=== PATIENT | female | born 1985 | race Caucasian/White ===

== ENCOUNTER 2019-11-10 14:18 | Emergency (ER) | payer SELFPAY ==
[2019-11-10 15:10] VITALS: BP 131/97; PULSE 100; RESP 16; TEMP 36.9; O2SAT 99
--- NOTE | 2019-11-10 15:34 | ED.URI ---
HPI - URI/Sore Throat General Chief Complaint: Upper Respiratory Infection Stated Complaint: chest pain, SOB, cough Source: patient Mode of arrival: ambulatory History of Present Illness HPI Narrative: this is a 34-year-old female with history of asthma and history of tobacco abuse recent only tested positive for COVID-19 approximately 2 weeks ago presents with mild shortness of breath with mild cough nasal congestion no audible wheezing vitals are stable with O2 sat 99%. Cough is nonproductive clear nasal discharge with no fever chills, does have an inhaler that she has been using. MD elicited complaint: nasal congestion Pertinent past history: other ( COVID positive 2 weeks ago) Onset (ago): day(s) Consistency: intermittent Severity: mild Description of mucous: watery Exacerbating factors: nothing Relieving factors: nothing Related Data Home Medications Medication Instructions Recorded Confirmed albuterol sulfate 2 puff INHALATION QID 12/13/18 11/10/19 Allergies Allergy/AdvReac Type Severity Reaction Status Date / Time No Known Allergies Allergy Verified 12/13/18 08:31 Review of Systems Review of Systems: All systems reviewed & are unremarkable except as noted in HPI and below PMFSH Past Medical History Medical History Asthma Social History Social History Gender identity (if verbalized by the patient): Female Exam Const: General: no acute distress Orientation/consciousness: patient oriented x3 HENMT: Head: normal to inspection Eyes: Conjunctivae: conjunctivae normal Pupils: Equal, round and reactive pupils present EOM: EOMs intact bilaterally Neck: Neck: normal visual inspection, no lymphadenopathy and no meningeal signs Chest: Chest palpation & inspection: normal inspection of the chest Resp: Effort & Inspection: normal respiratory effort Cardio: Rate: regular rate Rhythm: regular rhythm GI: GI Palp: Yes Soft to palpation Auscultation: normal bowel sounds : General: Yes no CVA tenderness Urinary Catheter: Urinary Catheter: patent and draining Back/Spine/Pelvis: Back: no CVA tenderness Extrem: General: normal to inspection and no pedal edema Psych: Mental Status: mental status grossly normal Course Course Emergency Course: patient resting comfortably O2 sats at 99% with clear lung sounds with no audible wheezing. Vital Signs Vital signs: Vital Signs Temperature 36.9 C 10/03/20 15:10 Pulse Rate 100 11/10/19 15:10 Respiratory Rate 16 11/10/19 15:10 Blood Pressure 131/97 H 11/10/19 15:10 Pulse Oximetry 99 11/10/19 15:10 Temperature 36.9 C 11/10/19 15:10 Pulse Rate 100 11/10/19 15:10 Respiratory Rate 16 11/10/19 15:10 Blood Pressure 131/97 H 11/10/19 15:10 Pulse Oximetry 99 11/10/19 15:10 Critical Care Time Critical Care Time Critical Care Time: No Discharge Plan Discharge Clinical Impression: Asthma Qualifiers: Asthma severity: mild Asthma persistence: intermittent Asthma complication type: uncomplicated Qualified Code(s): J45.20 - Mild intermittent asthma, uncomplicated Acute bronchitis Qualifiers: Bronchitis organism: unspecified organism Qualified Code(s): J20.9 - Acute bronchitis, unspecified Patient Disposition: Home, Self-Care Condition: Stable Instructions: Antibiotic Form, Acute Bronchitis (ED) Additional Instructions: take medicine as prescribed and follow-up with primary care physician if symptoms persist or worsen. Prescriptions: New azithromycin [Zithromax Z-Darnell] 250 mg tablet See Rx Instructions .ROUTE .COMPLEX Qty: 6 RF: 0 methylprednisolone [Medrol (Darnell)] 4 mg tablets,dose pack See Rx Instructions .ROUTE .COMPLEX Qty: 21 RF: 0 No Action albuterol sulfate 90 mcg/actuation Hfa Aerosol Inhaler 2 puff INHALATION QID RF: 0 Follow-up/Referrals: Trista Powers MD
[2019-11-10] MEDS: cefTRIAXone 1 GM VIAL IM (15:44)
[2019-11-10 15:52] VITALS: RESP 17
== END 2019-11-10 15:52 | disposition home or self-care (01) ==
PROVIDERS: Emergency Provider Emergency Medicine; PCP Internal Medicine
DX: J45.20 Mild intermittent asthma, uncomplicated (principal); J20.9 Acute bronchitis, unspecified
CPT/HCPCS: 96372; 99283; J0696

== ENCOUNTER 2021-08-28 13:04 | Outpatient (CLI) | payer OTHER, SELFPAY ==
[2021-08-28 13:59] LABS: Influenza A QL RT-PCR Negative (Negative); Influenza B QL RT-PCR Negative (Negative); SARS-CoV-2 RNA PCR Positive (Negative)
== END 2021-08-28 13:05 | disposition home or self-care (01) ==
LOC: CHSLAB 13:07
PROVIDERS: PCP Internal Medicine; Visit Provider Nurse Practitioner Family
DX: U07.1 COVID-19 (principal); J06.9 Acute upper respiratory infection, unspecified; R50.9 Fever, unspecified
CPT/HCPCS: 87502; C9803; U0003; U0005

== ENCOUNTER 2023-05-23 11:27 | Inpatient (IN) | payer OTHER, SELFPAY ==
[2023-05-23] VITALS (97 sets, daily range): BP systolic 94–129; BP diastolic 43–95; PULSE 65–102; RESP 16; TEMP 36.6–36.9; O2SAT 97–100; BMI 25.3
[2023-05-23 12:54] LABS: Basophils Percent Auto 0.4 % (0.2-1.2); Eosinophils Absolute Auto 0.1 K/mm3 (0-0.3); Hematocrit 33.8 % (37.0-47.0); Hemoglobin 11.7 g/dL (12.0-15.0); Immature Granulocyte Absolute 0.05 K/mm3 (0.00-0.031); Immature Granulocyte Percent A 0.7 % (0-0.5); Lymphocytes Absolute Auto 1.36 K/mm3 (0.9-3.2); Lymphocytes Percent Auto 18.6 % (18.3-44.2); Mean Corpuscular HGB Conc 34.6 g/dl (32-36); Mean Corpuscular Hemoglobin 31.4 pg (26-34); Mean Corpuscular Volume 90.6 fl (80-100); Mean Platelet Volume 10.3 fl (7.4-10.4); Monocytes Absolute Auto 0.5 K/mm3 (0.1-0.6); Monocytes Percent Auto 6.3 % (2.6-8.5); Neutrophils Absolute Auto 5.3 K/mm3 (1.3-6.7); Platelet Count Result 201 k/mm3 (150-375); Red Blood Count 3.73 M/mm3 (4.2-5.4); Red Cell Distribution Width 13.2 % (11.5-14.5); White Blood Count 7.3 K/mm3 (4.5-10.0)
[2023-05-23] MEDS: LACTATED RINGERS 1,000 ML 125 ML IV CONT (12:57)
--- NOTE | 2023-05-23 13:04 | LDADM ---
This patient, Eliana Collins, was admitted to Labor/Delivery/Recovery 103 on 05/23/23 at 11:27. Plans for labor, pain management and were discussed with patient. Patient/family oriented to hospital policies and general routines including ID bracelet, bed and alarms, visiting hours, pain management, procedures, bathroom and other care routines, personal items, smoking policy, room service/diet and guest tray routines, security routines, and visiting hours. Patient/Family are encouraged to report perceived risks to care and to ask questions if they do not understand what they are told or what they should do. See [facility]BIX for further documentation.
[2023-05-23] MEDS: OXYTOCIN 30 UNITS/NS 500 ML 30 UNITS/500 ML BAG IV CONT (13:23)
[2023-05-23 13:44] LABS: HIV 1/2 Ab P24 Ag Result Negative (Negative)
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
[2023-05-23 14:14] LABS: Hepatitis B Surface Antigen Negative (Negative)
[2023-05-23 14:23] LABS: Hepatitis B Surface Antigen 0.08 S/C; Rubella IgG Antibody > 110.0 IU/ML
--- NOTE | 2023-05-23 16:17 | P.PNAN_ITS ---
Anes - Initial Pre Proc Eval Date/Time: 05/23/23 16:17 Surgeon: Carissa Arceo MD Pre Op Diagnosis: Induction of Labor Patient Data Age: 37 Gender: F Height: 1.63 m Weight: 67 kg Last Vital Signs Temp 36.6 C 05/23/23 16:14 Pulse 84 05/23/23 16:15 BP 94/62 L 05/23/23 16:15 Pulse Ox 100 05/23/23 16:14 O2 Del Method Room Air 05/23/23 13:02 Allergies Allergy/AdvReac Type Severity Reaction Status Date / Time No Known Allergies Allergy Verified 05/16/23 14:37 Home Medications Medication Instructions Recorded Confirmed Type albuterol sulfate 90 mcg/actuation 2 puff inhalation QID #6.7 grams 04/06/23 05/23/23 Rx aerosol inhaler ondansetron 4 mg disintegrating 4 mg PO Q6H PRN nausea and 05/04/23 05/23/23 Rx tablet vomiting #20 tabs prenat.vits,varun,vjy-tojr-rlwyg 1 tablet PO DAILY 05/05/23 05/23/23 History buspirone 10 mg tablet 10 mg PO DAILY #30 tabs 05/11/23 05/23/23 Rx escitalopram oxalate 10 mg tablet 15 mg PO DAILY 90 days #135 tabs 05/11/23 05/23/23 Rx Laboratory Tests 05/23/23 12:31 WBC 7.3 K/mm3 (4.5-10.0) RBC 3.73 L M/mm3 (4.2-5.4) Hgb 11.7 L g/dL (12.0-15.0) Hct 33.8 L % (37.0-47.0) MCV 90.6 fl (80-100) MCH 31.4 pg (26-34) MCHC 34.6 g/dl (32-36) RDW 13.2 % (11.5-14.5) Plt Count 201 k/mm3 (150-375) MPV 10.3 fl (7.4-10.4) Immature Gran % (Auto) 0.7 H % (0-0.5) Neut % (Auto) 73.0 % (45.5-73.1) Lymph % (Auto) 18.6 % (18.3-44.2) [place] % (Auto) 6.3 % (2.6-8.5) Eos % (Auto) 1.0 % (0-4.4) Baso % (Auto) 0.4 % (0.2-1.2) Lymph # (Auto) 1.36 K/mm3 (0.9-3.2) [place] # (Auto) 0.5 K/mm3 (0.1-0.6) Eos # (Auto) 0.1 K/mm3 (0-0.3) Baso # (Auto) 0.0 K/mm3 (0.0-0.1) Abs Immat Gran (auto) 0.05 H K/mm3 (0.00-0.031) Absolute Neuts (auto) 5.3 K/mm3 (1.3-6.7) Absolute Nucleated RBC 0.000 K/mm3 (0.0-0.012) Nucleated RBC % 0.0 % (0.0-0.2) RPR Pending Hep Bs Antigen Negative (Negative) HIV 1&2 Ab/P24 Ag 4thGn Negative (Negative) Rubella IgG Antibody > 110.0 IU/ML (10 - ) Blood Type O Positive Antibody Screen Negative Patient hx anesthesia problems: none Family hx anesthesia problems: none Results Review: All pre-operative results and documents have been reviewed as part of the pre-operative evaluation. [facility] Past Medical History Medical History Asthma Mastodynia of left breast Suppression of menses Surgical History Surgical History H/O: knee surgery History of colposcopy x 2 Hx of shoulder surgery Family History Family History Grandparent Hypertension Mother Hypertension Depression Lupus Social History Social History Smoking packs per day: 0.5 Smoking cigarettes per day: 10.0 Smoking status: Current every day smoker Tobacco type: cigarettes Alcohol intake: former Substance use: former Last use: first trimester Do You Feel Safe in your Home?: Yes Lack of Transportation: YES Lack of Food: Never True Current Housing: I Do Not Have Housing Concerned About Future Housing: YES Difficulty Paying Gas/Electric Bills: YES Difficulty Paying for Meds: No Currently Unemployed: YES Education: High School Diploma/GED Difficulty w/ Childcare or Family Care: YES Living arrangements: with family Occupation/Education: occupation Gender identity (if verbalized by the patient): Female Spiritual care concerns: No Anes - Eval Final PreProcedure Day of Procedure 05/23/23 16:17 Patient weight: normal Neurological: alert and oriented ASA classification: II Emergent: no Anesthetic plan: proceed Anesthesia type and monitoring: regional epidural and standard monitoring Results Review: All pre-operative results and documents have been reviewed as part of the pre- operative evaluation. Informed Consent: The patient's anesthetic plan and its attendant risks and benefits were discussed with the patient/family/POA. Questions were solicited and answers provided to the satisfaction of the patient/family/POA.
--- NOTE | 2023-05-23 19:11 | PM.OBPRVD ---
OB - Vaginal Delivery Note Procedure Delivery date: 05/23/23 Events: Elective Induction of Labor Induction method: Per Pitocin Protocol Delivery augmentation: Rupture of Membranes Delivery monitor: External FHT and External Uterine Route of delivery: Episiotomy description: None Laceration Description: None Specimen: Yes (placenta) Quantitative Blood Loss (ml): 100 Anesthesia type: Epidural Disposition: Floor Complications: No immediate complications Baby Date of : 05/23/23 Time of : 18:58 Weeks of gestation at delivery: 39 gender: Female presentation: vertex Placenta delivery description: Expressed Cord Vessel Description: 3 Vessels, Nuchal Cord and Around Extremity score one minute: 8 score five minutes: 9 Narrative: Eliana rapidly progressed to complete dilation with strong desire to push. She pushed 1 and half times and delivered the head over intact perineum. Nuchal cord was noted but loose and delivered through. She easily delivered the infant's shoulders and body without complication. The cord was also noted to be around the lower extremity. The was immediately placed skin to skin and had spontaneous cry. Delayed cord clamping was performed. The umbilical cord was then doubly clamped and cut. A segment of the cord was collected for cord gases. The remaining cord blood was collected for typing. With Pitocin running and gentle downward traction on the cord, the placenta delivered without complications. Bimanual massage was performed and good uterine tone with minimal bleeding was noted. Sponge, lap, instrument, and needle counts were correct at the end the procedure. Mom and baby were left bonding in the birthing suite in a stable condition. [facility] Delivery Billing Delivery Delivery: Delivery Charge
[2023-05-23] MEDS: OXYTOCIN 30 UNITS/NS 500 ML 30 UNITS/500 ML BAG 125 UNITS IV CONT (19:35)
[2023-05-23] MEDS: BENZOCAINE 20% AER SPR (*SP) 56 GM CAN 1 SPRAY TOPICAL (21:04)
[2023-05-23] MEDS: WITCH HAZEL 40 PADS 1 PAD TOPICAL (21:04)
[2023-05-23 21:07] LABS: Amphetamine Screen Urine Negative (Negative); Barbiturate Screen Urine Negative (Negative); Benzodiazepines Screen Urine Negative (Negative); Cannabinoid Screen Urine Negative (Negative); Cocaine Screen Urine Negative (Negative); Methadone Screen Urine Negative (Negative); Opiate Screen Urine Negative (Negative); Phencyclidine Screen Urine Negative (Negative)
[2023-05-24 04:53] LABS: Hematocrit 30.7 % (37.0-47.0); Hemoglobin 10.1 g/dL (12.0-15.0)
--- NOTE | 2023-05-24 07:53 | PM.OBPNVD ---
OB - PN: Subj Subjective Date/time seen: 05/24/23 07:35 Narrative: PPD#1 Eliana reports doing well today. Her bleeding is cat breeder. Her pain is controlled. She is tolerating regular diet, voiding, passing gas, and ambulating without issues. She is breast/bottle feeding. OB - PN: Obj Data Labs 05/24/23 04:16 Labs: Laboratory Results - last 24 hr 05/23/23 12:31 WBC 7.3 RBC 3.73 L Hgb 11.7 L Hct 33.8 L MCV 90.6 MCH 31.4 MCHC 34.6 RDW 13.2 Plt Count 201 MPV 10.3 Immature Gran % (Auto) 0.7 H Neut % (Auto) 73.0 Lymph % (Auto) 18.6 [place] % (Auto) 6.3 Eos % (Auto) 1.0 Baso % (Auto) 0.4 Lymph # (Auto) 1.36 [place] # (Auto) 0.5 Eos # (Auto) 0.1 Baso # (Auto) 0.0 Abs Immat Gran (auto) 0.05 H Absolute Neuts (auto) 5.3 Absolute Nucleated RBC 0.000 Nucleated RBC % 0.0 Hep Bs Antigen Negative HIV 1&2 Ab/P24 Ag 4thGn Negative Rubella IgG Antibody > 110.0 Blood Type O Positive Antibody Screen Negative OB - PN A/P Assessment and Plan (1) Normal vaginal delivery of third : Code(s): O80 - Encounter for full-term uncomplicated delivery Status: Acute Plan day: 1 Plan: routine care Comments: - PO pain meds - Regular diet - Ambulation and hydration encouraged Time Spent With Patient Time: Total time spent is greater than 50% in coordination of care (as documented) at patient's floor/unit and/or counseling patient: Review of Systems Constitutional: Constitutional: Denies chills, Denies fever(s) and Denies headache(s) Eyes: Eyes: Denies change in vision ENT: Denies dizziness and Denies headache(s) Cardiovascular: Cardiovascular: Denies chest pain, Denies palpitations and Denies dyspnea Respiratory: Respiratory: Denies cough and Denies dyspnea Gastrointestinal: Gastrointestinal: Denies nausea and Denies vomiting Neurologic: Denies dizziness and Denies headache(s) Endocrine: Endocrine: Denies palpitations Exam Const: General: cooperative, comfortable and no acute distress Orientation/consciousness: patient oriented x3 Resp: Effort & Inspection: normal respiratory effort Auscultation: clear to auscultation bilaterally Cardio: Rate: regular rate GI: Inspection: non-distended GI Palp: No abdominal tenderness and Yes Soft to palpation Auscultation: normal bowel sounds : Other: fundus firm Skin: General skin exam: normal color Neuro: General: patient oriented x3 Extrem: General: normal to inspection Psych: Appearance: grossly normal Affect: normal affect Attitude: cooperative
[2023-05-24] MEDS: IBUPROFEN 600 MG TABLET PO (08:02)
[2023-05-24 08:10] VITALS: BP 109/64; PULSE 60; RESP 16; TEMP 36.8; O2SAT 100
--- NOTE | 2023-05-24 08:25 | PC.NURSE ---
Breast pump provided due to ineffective feedings. Instructions given on cleaning, care, usage, that there should be no pain, pumping schedule for milk production, collection, and storage of human milk. Patient was assessed for correct placement, flange size, to pump for comfort and nipple stretching/stimulation for adequate milk production every 3 hours (8 times in 24 hours) 1-2 times at night.
[2023-05-24] MEDS: ESCITALOPRAM OXALATE 5 MG TABLET 15 MG PO (09:53)
[2023-05-24] MEDS: DOCUSATE SODIUM 100 MG CAPSULE PO (09:53)
[2023-05-24] MEDS: MULTIVIT/MIN/PREN/FOL AC/IRON TABLET 1 TAB PO (09:53)
[2023-05-24] MEDS: busPIRone HCL 10 MG TABLET PO (09:53)
--- NOTE | 2023-05-24 12:13 | WPDANLDPN2 ---
Anes-Prog Note L&D Date/Time: 05/24/23 12:13 Comfortable throughout: labor and delivery Neuraxial method: epidural Epidural/Spinal procedure site: clean & non-tender Neuro status: Neuro function grossly intact. Cardiovascular status: normal Respiratory status: normal Airway patency: baseline Mental status: baseline Post-Op hydration status: normal Vital Signs: Last Vital Signs Temp 36.8 C 05/24/23 08:10 Pulse 60 05/24/23 08:10 Resp 16 05/24/23 08:10 BP 109/64 05/24/23 08:10 Pulse Ox 100 05/24/23 08:10 O2 Del Method Room Air 05/24/23 08:00 Pain score (VAS): 2/10 Post-procedural complaints: none Patient feedback: Patient satisfied with anesthetic care.
[2023-05-24 13:15] LABS: Rapid Plasma Reagin Non-Reactive (NonReactive)
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
--- NOTE | 2023-05-24 14:00 | PC.NURSE ---
DCFS worker Tamie Greene and [facility] fire investigation manager Marixa Lambert spoke with patient about taking custody of infant at discharge. Carissa from care coordination notified of this plan and DCFS worker's phone number provided. Both DCFS worker and fire investigation manager's information card attached to both this patient and 's chart.
[2023-05-24 15:50] VITALS: BP 116/66; PULSE 74; RESP 16; TEMP 36.8; O2SAT 98
[2023-05-24] MEDS: ACETAMINOPHEN 325 MG TABLET 650 MG PO (16:00)
[2023-05-24 21:16] VITALS: BP 116/61; PULSE 71; RESP 18; TEMP 36.7; O2SAT 100
--- NOTE | 2023-05-25 06:56 | PM.OBDSVD ---
DS: Admitting Diagnosis Discharge Date 05/25/23 Admitting Diagnosis Induction of labor DS: Discharge Diagnosis Discharge Diagnosis (1) Normal vaginal delivery of third : Code(s): O80 - Encounter for full-term uncomplicated delivery Status: Acute OB - DS: Summary OB Procedures : Ultrasound OB Procedures Intrapartum: Spontaneous Vag Delivery OB Procedures: : None Peripartum Data Infant Delivery Method: Natural Vaginal Laceration Description: None Episiotomy description: None complications: none 1: Gender: Female Disposition of : home (with grandmother) Status at Discharge Functional status at discharge: independent ambulation Overall status at discharge: patient is back to baseline Time Spent with Patient Time attestation: Total time spent providing and/or coordinating discharge services: Time spent: Less than 30 minutes Exam Const: General: cooperative, healthy appearing, comfortable and no acute distress Orientation/consciousness: patient oriented x3 Resp: Effort & Inspection: normal respiratory effort Auscultation: clear to auscultation bilaterally Cardio: Rate: regular rate GI: Inspection: non-distended GI Palp: No abdominal tenderness and Yes Soft to palpation Auscultation: normal bowel sounds : Other: fundus firm Skin: General skin exam: normal color Neuro: General: patient oriented x3 Extrem: General: normal to inspection Psych: Appearance: grossly normal Affect: normal affect Attitude: cooperative DS: Data Data Completed and Pending Pending studies at discharge: Pending at discharge 05/23/23 20:08 Surgical [PTH] Routine Labs on day of discharge: Labs from last 24 hours 05/24/23 05/23/23 05/23/23 04:16 20:00 12:31 Hgb 10.1 L Hct 30.7 L Urine Opiates Screen Negative Urine Methadone Screen Negative Ur Barbiturates Screen Negative Ur Phencyclidine Scrn Negative Ur Amphetamine Screen Negative U Benzodiazepines Scrn Negative Urine Cocaine Screen Negative U Cannabinoids Screen Negative RPR Non-reactive Discharge Plan Discharge Attending physician on discharge: Carissa Arceo Discharging Clinician: Carissa Arceo Anticipated Discharge Date/Time: 05/25/23 10:00 Patient Disposition: Home, Self-Care Activity: may shower and pelvic rest Diet: regular Patient Instructions: Vaginal Delivery (DC) Stand Alone Forms: General Discharge Information Follow-up/Referrals: Carissa Arceo MD [Physician] - 4 Weeks Discharge Medications: New acetaminophen 325 mg Tablet 650 mg PO Q6H PRN (Reason: Mild Pain (1-3) Or Headache) Qty: 60 0RF docusate sodium 100 mg Capsule 100 mg PO BID PRN (Reason: Constipation) Qty: 60 0RF ibuprofen 600 mg Tablet 600 mg PO Q6H PRN (Reason: Cramping) Qty: 40 0RF Continued albuterol sulfate 90 mcg/actuation HFA aerosol inhaler 2 puff INHALATION QID Qty: 6.7 2RF ondansetron 4 mg tablet,disintegrating 4 mg PO Q6H PRN (Reason: nausea and vomiting) Qty: 20 0RF #2 Tablet 1 tablet PO DAILY escitalopram oxalate 10 mg tablet 15 mg PO DAILY 90 Days Qty: 135 3RF buspirone 10 mg tablet 10 mg PO DAILY Qty: 30 2RF Date of admission: 05/23/23 11:27 Primary Care Provider: Trista Powers Admitting Provider: Carissa Arceo Attending physician on admission: Carissa Arceo Condition: Stable
[2023-05-25 07:34] VITALS: BP 96/51; PULSE 69; RESP 16; TEMP 36.3; O2SAT 100
[2023-05-25] MEDS: busPIRone HCL 10 MG TABLET PO (09:18)
[2023-05-25] MEDS: ESCITALOPRAM OXALATE 5 MG TABLET 15 MG PO (09:19)
[2023-05-25] MEDS: MULTIVIT/MIN/PREN/FOL AC/IRON TABLET 1 TAB PO (09:19)
[2023-05-25] MEDS: DOCUSATE SODIUM 100 MG CAPSULE PO (09:19)
--- NOTE | 2023-05-25 09:33 | PC.NURSE ---
On 05/25/23, the student, Liz Santana, provided care and completed [facility] documentation on this patient. I have reviewed the student's documentation and agree with the findings.
--- NOTE | 2023-05-25 13:02 | PC.NURSE ---
[id number] Introductions were made and mother shared she has been putting to breast and initiated pumping last night. We discussed protecting her milk supply in her unique situation. Patient was instructed to not use drugs while or pumping EBM to feed her . Mother shared she has been free of drugs for 5 months, likes her life now and doesn't want to return to drugs with the giving her incentive to stay clean. Reinforced with mother that if she uses her drug choice to not breastfeed or given the her pumped EBM. Encouraged mother to seek support. Resources provided along with name written on the communication board to request an inpatient consult. Mother voiced understanding of the information.
--- NOTE | 2023-05-25 14:07 | PCCCNOTE ---
Care Coordination. Spoke with Tamie Greene, [facility] senior investigator, and she and pt.'s [employer] worker, Marixa Guerra. will be here around 10:30am for 's discharge as they will take into care with grandmother.
== END 2023-05-25 11:00 | disposition home or self-care (01) | DRG 560 ==
LOC: ANHLDR 11:34 → ANHOB2 22:31
PROVIDERS: Admitting Provider Obstetrics & Gynecology; PCP Internal Medicine; Visit Provider Obstetrics & Gynecology
DX: O69.82X0 Labor and delivery complicated by other cord entanglement, without compression, not applicable or unspecified (principal); Z37.0 Single live birth; Z3A.39 39 weeks gestation of pregnancy; O99.344 Other mental disorders complicating childbirth; F41.8 Other specified anxiety disorders; O99.334 Smoking (tobacco) complicating childbirth; F17.210 Nicotine dependence, cigarettes, uncomplicated
CPT/HCPCS: 36415; 80307; 85014; 85018; 85025; 86592; 86703; 86762; 86850; 86900; 86901; 87340; 88307; A9270; G0432; J2590; J2795; J7120

== ENCOUNTER 2023-09-29 12:38 | Emergency (ER) | payer OTHER, SELFPAY ==
--- NOTE | 2023-09-29 12:47 | ED.EYEPROB ---
HPI - Eye Problem General Stated complaint: Cat Time Seen by Provider: 09/29/23 13:08 Source: patient, RN notes reviewed and old records reviewed Mode of arrival: ambulatory Limitations: no limitations History of Present Illness HPI Narrative: 37 year old female accompanied by friend presents to express care with complaints of being scratched in the eye by her 2 month old kitten last night.Patient reports that she has some burning type of discomfort to her right eye and her vision is a little blurry, Patient reports that she has no sharp pain to her right eye and has not had any discharge form her right eye has had some increased watering. Patient reports that she has used saline solution and Visine to her right eye. chief complaint: eye redness Onset (ago): day(s) (last night) Onset description: sudden Location: right eye Severity scale (1-10): 5 If Pain, Quality: burning Treatments Prior to Arrival: other (saline solution and Visine) Related Data Home Medications Medication Instructions Recorded Confirmed prenat.vits,varun,[id number] 1 tablet PO DAILY 05/05/23 05/23/23 Allergies Allergy/AdvReac Type Severity Reaction Status Date / Time No Known Allergies Allergy Verified 05/16/23 14:37 Review of Systems Review of Systems: CONSTITUTIONAL: Denies fever, chills, or sweats. EYES:states that right eye is a little blurry denies sharp pain states some burning and aching. Reports redness, irritation, no discharge.from right eye ENT: Denies rhinorrhea, congestion, sore throat, or otalgia. CARDIOVASCULAR: Denies chest pain, palpitations, or edema. RESPIRATORY: Denies cough or dyspnea. SKIN: Denies rash or itching. NEUROLOGIC: Denies headache All systems reviewed & are unremarkable except as noted in HPI and below PMFSH Past Medical History Medical History Asthma Mastodynia of left breast Suppression of menses Surgical History Surgical History H/O: knee surgery History of colposcopy x 2 Hx of shoulder surgery Family History Family History Grandparent Hypertension Mother Hypertension Depression Lupus Social History Social History Smoking packs per day: 0.5 Smoking cigarettes per day: 10.0 Smoking status: Current every day smoker Tobacco type: cigarettes Alcohol intake: former Substance use: former Last use: first trimester Do You Feel Safe in your Home?: Yes Lack of Transportation: YES Lack of Food: Never True Current Housing: I Do Not Have Housing Concerned About Future Housing: YES Difficulty Paying Gas/Electric Bills: YES Difficulty Paying for Meds: No Currently Unemployed: YES Education: High School Diploma/GED Difficulty w/ Childcare or Family Care: YES Living arrangements: with family Occupation/Education: occupation Gender identity (if verbalized by the patient): Female Spiritual care concerns: No Comments At time of signature, agree with nursing past medical, surgical, social and family history. There is no relevant family history pertinent to the presenting complaint Exam Narrative: GENERAL: Well-appearing, well-nourished, and in no acute distress. HEAD: Normocephalic, atraumatic. EYES: PERRLA and EOMI. Upper and lower eyelids unremarkable. No periorbital cellulitis noted. Sclera slightly injected no conjunctivae injection, pain and burning right eye.Visual acuity right 20/50, Left 20/20 without correction/ ENT: Nares clear, no rhinorrhea or epistaxis. Mucous membranes moist. NECK: Supple. no lymphadenopathy CHEST: Clear to auscultation. No respiratory distress. AMANDA 100% on room air HEART: Regular rate and rhythm. No murmur heard. Normal peripheral pulses. SKIN: Warm, dry, no rash. NEURO: No focal deficits. Alert and o
== END 2023-09-29 13:35 | disposition home or self-care (01) ==
PROVIDERS: Emergency Provider Registered Nurse; PCP Internal Medicine
DX: S05.01XA Injury of conjunctiva and corneal abrasion without foreign body, right eye, initial encounter (principal); W55.03XA Scratched by cat, initial encounter; Z23 Encounter for immunization; F17.210 Nicotine dependence, cigarettes, uncomplicated; J45.909 Unspecified asthma, uncomplicated
CPT/HCPCS: 90471; 90715; 99213; G0463

== ENCOUNTER 2024-02-07 14:37 | Emergency (ER) | payer OTHER, SELFPAY ==
[2024-02-07 14:46] VITALS: BP 130/70; PULSE 72; RESP 18; TEMP 36.4; O2SAT 100
--- NOTE | 2024-02-07 16:55 | ED_ITS ---
HPI - General Adult General Chief complaint: Upper Respiratory Infection Stated complaint: Congestion/Chest Congestion/Ear Pain Source: patient Mode of arrival: ambulatory Limitations: no limitations History of Present Illness HPI narrative: Patient presents for evaluation of sick symptoms for last week. She initially had some sinus congestion postnasal drainage. She has since developed an occasional cough. Denies SOB, fever, chills, nausea, or vomiting. She now has a sensation of fluid in the ears with associated popping. She tried taking an OTC sinus medication. Symptoms persist. A few family members have experienced similar symptoms. She does vape. Related Data Allergies Allergy/AdvReac Type Severity Reaction Status Date / Time No Known Allergies Allergy Verified 02/07/24 16:06 Review of Systems Review of Systems: CONSTITUTIONAL: Denies fever, chills, or sweats. EYES: Denies visual changes, redness, or discharge. ENT: Reports sinus congestion, postnasal drainage, popping sensation in the ears and sensation that she has fluid in the ears. CARDIOVASCULAR: Denies chest pain, palpitations, or edema. RESPIRATORY: Reports cough. Denies shortness of breath. GASTROINTESTINAL: Denies abdominal pain, nausea, vomiting, or diarrhea. GENITOURINARY: Denies dysuria or hematuria. SKIN: Denies rash or itching. MUSCULOSKELETAL: Denies back pain, joint pain, or myalgia. NEUROLOGIC: Denies headache, numbness, dizziness, or weakness. PSYCHIATRIC: Denies anxiety or depression. [facility] Past Medical History Medical History Mastodynia of left breast Suppression of menses Asthma Surgical History Surgical History H/O: knee surgery Hx of shoulder surgery History of colposcopy x 2 Family History Family History Grandparent Hypertension Mother Hypertension Depression Lupus Social History Social History Smoking status: Current every day smoker Tobacco type: cigarettes and e-cigarettes/vaping Alcohol intake: former Substance use: former Last use: first trimester Do You Feel Safe in your Home?: Yes Lack of Transportation: YES Lack of Food: Never True Current Housing: I Do Not Have Housing Concerned About Future Housing: YES Difficulty Paying Gas/Electric Bills: YES Difficulty Paying for Meds: No Currently Unemployed: YES Education: High School Diploma/GED Difficulty w/ Childcare or Family Care: YES Living arrangements: with family Occupation/Education: occupation Gender identity (if verbalized by the patient): Female Spiritual care concerns: No Exam Narrative: GENERAL: Well-appearing, well-nourished, and in no acute distress. HEAD: Normocephalic, atraumatic. EYES: PERRLA and EOMI. ENT: Nares clear, no rhinorrhea or epistaxis. Mucous membranes moist. Oropharynx without tonsillar hypertrophy exudate or other lesions. There is middle ear fluid bilaterally with visible air-fluid levels. Tympanic membranes are bulging NECK: Supple. No adenopathy or masses. No carotid bruits or JVD CHEST: Clear to auscultation. No respiratory distress. No wheezes rales or rhonchi HEART: Regular rate and rhythm. No murmur heard. Normal peripheral pulses. ABDOMEN: Soft, nontender, nondistended, normal active bowel sounds. EXTREMITIES: Normal range of motion. No edema. SKIN: Warm, dry, no rash. NEURO: No focal deficits. Alert and oriented x3. PSYCH: Normal mood and affect. Course Course Emergency Course: This is a 38-year-old female who presented for evaluation of sick symptoms. She has evidence of otitis media on exam. Will treat with Augmentin. Advised smoking cessation. Follow up with primary provider. Go to the ER for worsening symptoms. Patient in agreement with plan of care Level of Care: Express Care Visit Vital Signs Vital signs: Vital Signs Temperature 36.4 C 02/07/24 14:46 Pulse Rate 72 02/07/24 14:46 Respiratory Rate 18 02/07/24 14:46 Blood Pressure 130/70 02/07/24 14:46 Pulse Oximetry 100 02/07/24 14:46 Oxygen Delivery Room Air 02/07/24 14:46 Temperature 36.4 C 02/07/24 14:46 Pulse Rate 72 02/07/24 14:46 Respiratory Rate 18 02/07/24 14:46 Blood Pressure 130/70 02/07/24 14:46 Pulse Oximetry 100 02/07/24 14:46 Oxygen Delivery Room Air 02/07/24 14:46 Medical Decision Making Vital Signs Vital Signs: Vital Signs Temperature 36.4 C 02/07/24 14:46 Pulse Rate 72 02/07/24 14:46 Respiratory Rate 18 02/07/24 14:46 Blood Pressure 130/70 02/07/24 14:46 Pulse Oximetry 100 02/07/24 14:46 Oxygen Delivery Room Air 02/07/24 14:46 Temperature 36.4 C 02/07/24 14:46 Pulse Rate 72 02/07/24 14:46 Respiratory Rate 18 02/07/24 14:46 Blood Pressure 130/70 02/07/24 14:46 Pulse Oximetry 100 02/07/24 14:46 Oxygen Delivery Room Air 02/07/24 14:46 Discharge Plan Discharge Clinical Impression: Otitis media Patient Disposition: Home, Self-Care Condition: Stable Instructions: Antibiotic Form, Ear Infection (ED) Patient Language: Thai Prescriptions: New amoxicillin-pot clavulanate 875-125 mg tablet 1 tablet PO Q12H Qty: 20 0RF No Action albuterol sulfate 90 mcg/actuation HFA aerosol inhaler 2 puff INHALATION QID Qty: 6.7 2RF acetaminophen 325 mg Tablet 650 mg PO Q6H PRN (Reason: Mild Pain (1-3) Or Headache) Qty: 60 0RF docusate sodium 100 mg Capsule 100 mg PO BID PRN (Reason: Constipation) Qty: 60 0RF ibuprofen 600 mg Tablet 600 mg PO Q6H PRN (Reason: Cramping) Qty: 40 0RF escitalopram oxalate 10 mg tablet 15 mg PO DAILY 90 Days Qty: 135 3RF buspirone 10 mg tablet 10 mg PO DAILY Qty: 30 2RF Follow-up/Referrals: Rosales Doshi MD [Physician] - Time of Disposition: 16:54
== END 2024-02-07 16:55 | disposition home or self-care (01) ==
PROVIDERS: Emergency Provider Nurse Practitioner
DX: H66.93 Otitis media, unspecified, bilateral (principal); F17.210 Nicotine dependence, cigarettes, uncomplicated; F17.290 Nicotine dependence, other tobacco product, uncomplicated; J45.909 Unspecified asthma, uncomplicated
CPT/HCPCS: 99213; G0463

== ENCOUNTER 2024-04-10 17:17 | Emergency (ER) | payer OTHER, SELFPAY ==
[2024-04-10 17:22] VITALS: BP 126/77; PULSE 74; RESP 18; TEMP 36.8; O2SAT 100
--- NOTE | 2024-04-10 17:48 | ED.HA ---
HPI - Headache General Chief Complaint: Headache Stated Complaint: dizzy/headache Time Seen by Provider: 04/10/24 17:48 Source: patient, family, RN notes reviewed and old records reviewed Mode of arrival: ambulatory Limitations: no limitations History of Present Illness HPI Narrative: 38 year old female who presents to express care with complaints of feeling like she was going to pass out at work she got flushed and felt dizzy. She states that she ate some coffee cake and icing and they checked her blood sugar at work and it was 159, and her blood pressure was 159/99. Patient reports that she still doesn't feel well feels some dizziness and has a headache, denies any nausea, denies any paraesthesia of body. MD elicited complaint: headache and other (dizzy) Onset (ago): hour(s) (this evening at work) Onset description: suddenly and with exertion Location: frontal Severity: mild Treatments prior to arrival: other (no meds) Related Data Allergies Allergy/AdvReac Type Severity Reaction Status Date / Time No Known Allergies Allergy Verified 04/10/24 17:24 Review of Systems Review of Systems: CONSTITUTIONAL: Reports malaise, chills, sweats, or fever. EYES: Denies visual changes, redness, or discharge. ENT: Reports rhinorrhea, congestion, no sinus pain, no otalgia and no sore throat. CARDIOVASCULAR: Denies chest pain, palpitations, or edema. RESPIRATORY: Reports no cough.? Denies dyspnea. GASTROINTESTINAL: Denies abdominal pain, nausea, vomiting, diarrhea SKIN: Denies rash or itching. MUSCULOSKELETAL: Denies myalgia. NEUROLOGIC: Reports dull headache and feelings of dizziness All systems reviewed & are unremarkable except as noted in HPI and below PMFSH Past Medical History Medical History (Updated 04/13/24 @ 12:18 by Marbella Lund NP) Anxiety and depression Bronchitis Mastodynia of left breast Suppression of menses Asthma Surgical History Surgical History H/O: knee surgery Hx of shoulder surgery History of colposcopy x 2 Family History Family History Grandparent Hypertension Mother Hypertension Depression Lupus Social History Social History (Reviewed 04/13/24 @ 12:12 by MIA Carroll Smoking status: Current every day smoker Tobacco type: cigarettes and e-cigarettes/vaping Alcohol intake: former Substance use: former Last use: first trimester Do You Feel Safe in your Home?: Yes Lack of Transportation: YES Lack of Food: Never True Current Housing: I Do Not Have Housing Concerned About Future Housing: YES Difficulty Paying Gas/Electric Bills: YES Difficulty Paying for Meds: No Currently Unemployed: YES Education: High School Diploma/GED Difficulty w/ Childcare or Family Care: YES Living arrangements: with family Occupation/Education: occupation Gender identity (if verbalized by the patient): Female Spiritual care concerns: No Comments At time of signature, agree with nursing past medical, surgical, social and family history. There is no relevant family history pertinent to the presenting complaint Exam Narrative: GENERAL: Well-appearing, well-nourished, and in no acute distress. HEAD: Normocephalic EYES: PERRLA, conjunctivae clear, no nystagmus ENT: Nares clear, turbinates edematous and erythematous, clear discharge. Mucous membranes moist.Left TM red, Right TM pearly farrar with dull light reflex bilaterally; no tragal tenderness. Oropharynx erythematous without lesions. Tonsils not enlarged and without exudate, no drooling, no hoarseness, no trismus, uvula midline. NECK: Supple. No lymphadenopathy CHEST: Clear to auscultation, breath sounds equal. No wheezing, rhonchi, rales, or stridor. No respiratory distress, speaks in full sentences.no cough noted SAO2 100% on room air HEART: Regular rate and rhythm. No murmur heard. SKIN: Warm, dry, no rash. NEURO: Alert and oriented x3. gait steady, cranial nerves intact with no deficit, PSYCH: Normal mood and affect Course Course Emergency Course: Patient is aware of diagnosis, understands and agrees to treatment plan.? Anticipatory guidance given.? Patient agrees to follow-up as directed and is aware of reasons to seek care at the emergency department. Portions of this record may have been created with voice recognition software Level of Care: Express Care Visit Vital Signs Vital signs: Vital Signs Temperature 36.8 C 04/10/24 17:22 Pulse Rate 74 04/10/24 17:22 Respiratory Rate 18 04/10/24 17:22 Blood Pressure 126/77 04/10/24 17:22 Pulse Oximetry 100 04/10/24 17:22 Oxygen Delivery Room Air 04/10/24 17:22 Temperature 36.8 C 04/10/24 17:22 Pulse Rate 74 04/10/24 17:22 Respiratory Rate 18 04/10/24 17:22 Blood Pressure 126/77 04/10/24 17:22 Pulse Oximetry 100 04/10/24 17:22 Oxygen Delivery Room Air 04/10/24 17:22 Reviewed MDM - Headache Differential Diagnosis Differential diagnosis: Likely headache, sinusitis and other (otitis media, influenza,COVID) Medical Records Attestation: I reviewed the patient's medical records. Lab Data Attestation: I reviewed the patient's lab results. Lab results narrative: Influenza A negative, Influenza B negative, COVID antigen negative Labs: Lab Results 04/10/24 Range/Units 18:12 POC Influenza A Ag Negative (Negative) POC Influenza B Ag Negative (Negative) POC SARS CoV-2 Ag Negative (Negative) Critical Care Time Critical Care Time Critical Care Time: No Discharge Plan Discharge Clinical Impression: Left otitis media Qualifiers: Otitis media type: serous Chronicity: acute Recurrence: non-recurrent Qualified Code(s): H65.02 - Acute serous otitis media, left ear Patient Disposition: Home, Self-Care Condition: Stable Instructions: Antibiotic Form, Ear Infection (GEN) Additional Instructions: Increase fluids especially juices and water [id number] cough and cold medicine of your choice for your symptoms Tylenol or ibuprofen for any fever pain Zyrtec Claritin Felicia daily heat to the face 20-30 minutes 4-6 times a day for pain Salt water gargles, throat lozenges or throat sprays as desired Antibiotic as directed--finished the medication Your COVID and flu were negative today you need to retest tomorrow. If your symptoms persist, change or worsen significantly before you can contact your personal physician then please, without delay, go to the emergency department for further evaluation. Follow-up with PCP in 7-10 days or sooner if needed Patient Language: Swedish Prescriptions: New amoxicillin 500 mg capsule 500 mg PO Q8H Qty: 30 0RF Rx Instructions: take all does of oral antibiotic (DME) SpeedySwab COVID-19 and Flu Kit See Rx Instructions .Route Qty: 1 0RF Rx Instructions: As directed No Action escitalopram oxalate 10 mg tablet 15 mg PO DAILY 90 Days Qty: 135 3RF buspirone 10 mg tablet 10 mg PO DAILY Qty: 20 0RF Follow-up/Referrals: PHYSICIAN NOT ON STAFF,NONSTAFF [Primary Care Provider] - Stand Alone Forms: Work/School Release IP Time of Disposition: 18:15 Quality [place] Coma Scale Eyes: Open Verbal: Oriented and Alert Motor: Follows Commands [place] Coma Total Score: 15
[2024-04-10 18:13] LABS: EDCOVIDSCREEN Negative (Negative); EDINFLUASCREEN Negative (Negative); EDINFLUBSCREEN Negative (Negative)
== END 2024-04-10 18:23 | disposition home or self-care (01) ==
PROVIDERS: Emergency Provider Registered Nurse
DX: H65.02 Acute serous otitis media, left ear (principal); Z20.822 Contact with and (suspected) exposure to COVID-19; F41.8 Other specified anxiety disorders; J45.909 Unspecified asthma, uncomplicated; F17.210 Nicotine dependence, cigarettes, uncomplicated; F17.290 Nicotine dependence, other tobacco product, uncomplicated
CPT/HCPCS: 87426; 87804; 99213; G0463